=== PATIENT | male | born 1965 ===

== ENCOUNTER 2017-08-28 10:44 | Emergency (ER) | payer OTHER ==
[2017-08-28] MEDS ORDERED: Lidocaine 1% 20 ML MDV ONE (11:07)
[2017-08-28] MEDS ORDERED: Triple Antibiotic Oint 1 GM Packet ONE (11:33)
[2017-08-28] MEDS ORDERED: Sodium Chloride 0.9% 100 ML ONE (12:36)
[2017-08-28] MEDS ORDERED: cefTRIAXone\\ROCEPHIN 1 GM VIAL ONE (12:36)
[2017-08-28] MEDS ORDERED: Sodium Chloride 0.9% 1,000 ML ONE (12:36)
[2017-08-28] MEDS ORDERED: Acetaminophen 500 MG TAB ONE (12:36)
[2017-08-28 12:39] LABS: #Basophils 0.1 thou/uL (0.0-0.2); #Lymphocytes 1.1 thou/uL (1.20-3.40); #Monocytes 1.4 thou/uL (0.11-0.59); %Basophils 0.6 % (0.0-1.0); %Eosinophils 0.1 % (0.0-10.0); %Lymphocytes 6.2 % (21.0-51.0); %Neutrophils 85.1 % (42.0-75.0); Hemoglobin 15.6 g/dL (14.0-18.0); Mean Corpuscular HGB CONC 31.9 g/dL (32.0-36.0); Mean Corpuscular Volume 87.7 fl (80.0-94.0); Mean Platelet Volume 7.5 fL (7.4-10.4); Platelet Count 299 thou/uL (130-400); RBC Distribution Width 12.1 % (11.5-14.5); Red Blood Cell (RBC) Count 5.59 mill/uL (4.70-6.10); White Blood Cell (WBC) Count 17.6 thou/uL (4.8-10.8)
[2017-08-28 12:53] LABS: ALT (SGPT) 23 U/L (8-55); AST (SGOT) 23 U/L (5-34); Albumin 4.7 g/dL (3.5-5.0); Alkaline Phosphatase 85 U/L (40-150); Anion Gap 17 mmol/L (10-20); BUN (Urea Nitrogen) 17 mg/dL (8.4-25.7); Bilirubin, Total 2.2 mg/dL (0.2-1.2); Calc. Creatinine Clearance 0 mL/min (70-130); Calcium 9.6 mg/dL (7.8-10.44); Carbon Dioxide 23 mmol/L (22-29); Chloride 105 mmol/L (98-107); Estimated GFR-MDRD 85; Globulin 3.5 g/dL (2.4-3.5); Glucose 124 mg/dL (70-105); Potassium 3.6 mmol/L (3.5-5.1); Protein, Total 8.2 g/dL (6.0-8.3); Sodium 141 mmol/L (136-145)
--- NOTE | 2017-08-28 13:12 | RAD ---
CHEST ONE VIEW: HISTORY: Fever. COMPARISON: None. FINDINGS: Exam is limited due to technique. The cardiac silhouette is enlarged. Evaluation for pneumothorax is limited, although no large pneum othorax is seen. No large pleural effusion is appreciated. IMPRESSION: Mild cardiomegaly. Repeat two views of the chest will be very beneficial. POS: [facility]
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
[2017-08-28 14:02] LABS: Bilirubin Negative (Negative); Blood, Urine Trace (Negative); Clarity Clear (Clear); Glucose, Urine (Dipstick) Negative (Negative); Leukocyte Negative (Negative); Nitrite Negative (Negative); Protein, Urine (Dipstick) 30 mg/dL (Neg-Trace); Specific Gravity, Urine 1.025 (1.005-1.030)
[2017-08-28 14:18] LABS: Bacteria/HPF Rare-Few HPF (None Seen); Other Microscopic Description NO; RBC/HPF 0-3 HPF (0-3); Squamous Epithelial 0-3 HPF (0-3); WBC/HPF 0-3 HPF (0-3)
[2017-08-28 14:20] LABS: Amphetamine Not Detected (NotDetected); Barbiturates Screen Not Detected (NotDetected); Benzodiazepine Screen Not Detected (NotDetected); Cocaine Metabolite Screen Not Detected (NotDetected); Medtox Control Line Valid? VALID (VALID); Methadone Not Detected (NotDetected); Methamphetamine Not Detected (NotDetected); Opiate Screen Not Detected (NotDetected); Oxycodone Screen Not Detected (NotDetected); Phencyclidine (PCP) Not Detected (NotDetected); THC/Cannabinoid Screen Not Detected (NotDetected); Tricyclic Screen Not Detected (NotDetected)
[2017-08-28 14:29] LABS: MDiff Complete? YES
[2017-08-28] MEDS ORDERED: Ibuprofen 800 MG TAB ONE (18:08)
== END 2017-08-28 18:35 | disposition short-term general hospital (02) ==
LOC: NAV ERS 10:44
DX: S01.01XA Laceration without foreign body of scalp, initial encounter (principal); A41.9 Sepsis, unspecified organism; N39.0 Urinary tract infection, site not specified; E78.5 Hyperlipidemia, unspecified; Y92.149 Unspecified place in prison as the place of occurrence of the external cause; Y04.2XXA Assault by strike against or bumped into by another person, initial encounter
CPT/HCPCS: 12002; 51701; 70450; 71010; 80053; 80306; 81003; 81015; 83605; 85025; 87040; 87086; 96365; J0696; J2001; J7050